=== PATIENT | male | born 1935 | race Caucasian/White ===

== ENCOUNTER → 2016-06-28 21:47 | Outpatient (CLI) | payer MEDICARE ==
[2015-07-26 18:12] VITALS: BMI 36.5
[~2016-06-28 21:47] MED LIST: ACETAMINOPHEN325 MG PO; ASPIRIN325 MG PO; BENADRYL 2% CRE30 GM TOPICAL; COZAAR50 MG PO; PROTONIX40 MG PO; TRIAMCINOLONE A60 M1 TP
== END | disposition home or self-care (01) ==
LOC: D.LABREF 21:47
DX: R60.0 Localized edema (principal)

== ENCOUNTER → 2016-06-29 20:06 | Outpatient (CLI) | payer MEDICARE ==
[2015-07-26 18:12] VITALS: BMI 36.5
[2016-06-29 21:16] LABS: ALBUMIN 4.5 g/dL (3.4-5.0); ANION GAP 17.8 mmol/L (8-16); BILIRUBIN - TOTAL 0.6 mg/dL (0.2-1.3); CARBON DIOXIDE 24.9 mmol/L (21.0-32.0); CHOL - HDL RATIO 4.4 ratio (2.3-4.9); CREATININE - SERUM 1.2 mg/dL (0.6-1.3); LDL-HDL RATIO 2.8 ratio (1.5-3.5); POTASSIUM - SERUM 4.7 mmol/L (3.5-5.1); PROTEIN - SERUM 7.8 g/dL (6.4-8.2)
== END | disposition home or self-care (01) ==
LOC: D.LABREF 20:06
PROVIDERS: Family Medicine
DX: Z00.00 Encounter for general adult medical examination without abnormal findings (principal)